=== PATIENT | female | born 1990 | race Caucasian/White ===

== ENCOUNTER 2024-03-13 14:15 | Outpatient (CLI) | payer OTHER, SELFPAY ==
--- NOTE | 2024-03-13 14:20 | XR_ITS ---
FINAL REPORT CLINICAL HISTORY: LT ARM PAIN COMPARISON: None FINDINGS: LEFT WRIST THREE VIEW Three views show no evidence of an acute, displaced fracture or dislocation of the visualized bony architecture. The joint spaces appear normal. IMPRESSION: Unremarkable exam. Reviewed, Interpreted and Dictated by Preet Kline MD Transcribed by Oksana Fong Authenticated and [facility]
--- NOTE | 2024-03-13 14:21 | XR_ITS ---
FINAL REPORT CLINICAL HISTORY: LT ARM PAIN COMPARISON: None FINDINGS: 2 views of the left forearm were obtained. There is no acute fracture or dislocation. The joints are intact. There are no soft tissue abnormalities. IMPRESSION: No acute process. Reviewed, Interpreted and Dictated by Preet Kline MD Transcribed by Oksana Fong Authenticated and [facility]
--- NOTE | 2024-03-13 14:26 | XR_ITS ---
FINAL REPORT CLINICAL HISTORY: LT ARM PAIN COMPARISON: None FINDINGS: 3 views of the left elbow were obtained. There is no acute fracture or dislocation. The joint spaces are well-preserved. There is no acute soft tissue abnormality. IMPRESSION: No acute abnormality identified. Reviewed, Interpreted and Dictated by Preet Kline MD Transcribed by Oksana Fong Authenticated and [facility]
== END 2024-03-13 23:59 | disposition home or self-care (01) ==
LOC: RAD 14:16
PROVIDERS: PCP Family Medicine; Visit Provider Nurse Practitioner
DX: M79.602 Pain in left arm (principal)
CPT/HCPCS: 73080; 73090; 73110

== ENCOUNTER 2024-03-28 09:02 | Outpatient (CLI) | payer OTHER, SELFPAY ==
--- NOTE | 2024-03-28 09:10 | XR_ITS ---
FINAL REPORT CLINICAL HISTORY: LBP COMPARISON: None FINDINGS: AP, lateral, and oblique views of the lumbar spine were obtained. There is no acute fracture or acute malalignment. Vertebral body height is preserved. No acute paraspinal abnormality is identified. IMPRESSION: No acute osseous abnormalities lumbar spine. Reviewed, Interpreted and Dictated by Cecelia Vanegas MD Transcribed by Oksana Fong Authenticated and [facility]
== END 2024-03-28 23:59 | disposition home or self-care (01) ==
LOC: RAD 09:05
PROVIDERS: PCP Nurse Practitioner; Visit Provider Nurse Practitioner
DX: M54.41 Lumbago with sciatica, right side (principal)
CPT/HCPCS: 72110

== ENCOUNTER → 2024-10-13 08:47 | Outpatient (RCR) | payer OTHER, SELFPAY | LOC: PT 08:47 | PROVIDERS: Visit Provider Nurse Practitioner | DX: M54.41 Lumbago with sciatica, right side (principal) | CPT/HCPCS: 97162 ==